=== PATIENT | female | born 1935 | race Caucasian/White ===

== ENCOUNTER 2018-07-27 09:20 | Inpatient (IN) | payer MEDICARE ==
[2018-07-27] MEDS ORDERED: methylPREDNISolone Sod Succ/PF 125 MG/2 ML VIAL ONE (09:36)
[2018-07-27 09:46] LABS: #Basophils 0.1 thou/uL (0.0-0.2); #Lymphocytes 1.3 thou/uL (1.20-3.40); #Neutrophils 5.8 thou/uL (1.40-6.50); %Basophils 0.9 % (0.0-1.0); %Eosinophils 0.1 % (0.0-10.0); %Lymphocytes 16.4 % (21.0-51.0); %Monocytes 11.6 % (0.0-10.0); Hemoglobin 14.9 g/dL (12.0-16.0); Mean Corpuscular HGB CONC 33.9 g/dL (32.0-36.0); Mean Corpuscular Hemoglobin 28.9 pg (27.0-31.0); Mean Corpuscular Volume 85.3 fL (78.0-98.0); Mean Platelet Volume 6.8 fL (7.4-10.4); Platelet Count 264 thou/uL (130-400); RBC Distribution Width 12.7 % (11.5-14.5); Red Blood Cell (RBC) Count 5.14 mill/uL (4.20-5.40); White Blood Cell (WBC) Count 8.2 thou/uL (4.8-10.8)
[2018-07-27] MEDS ORDERED: Nitroglycerin 2% Ointment 1 INCH/1 GM Packet ONE (09:50)
[2018-07-27 10:02] LABS: ALT (SGPT) 13 U/L (8-55); AST (SGOT) 24 U/L (5-34); Albumin 3.9 g/dL (3.4-4.8); Alkaline Phosphatase 76 U/L (40-150); Anion Gap 13 mmol/L (10-20); BUN (Urea Nitrogen) 23 mg/dL (9.8-20.1); Bilirubin, Total 0.3 mg/dL (0.2-1.2); CK (CPK) 251 U/L (29-168); Calc. Creatinine Clearance 0 mL/min (70-130); Calcium 9.3 mg/dL (7.8-10.44); Carbon Dioxide 34 mmol/L (23-31); Chloride 95 mmol/L (98-107); Estimated GFR-MDRD 40; Globulin 3.5 g/dL (2.4-3.5); Glucose 105 mg/dL (83-110); Potassium 3.8 mmol/L (3.5-5.1); Protein, Total 7.4 g/dL (6.0-8.3); Sodium 138 mmol/L (136-145)
[2018-07-27 10:04] LABS: CKMB 4.1 ng/mL (0-6.6); Troponin I Less than 0.010 ng/mL (< 0.028)
[2018-07-27] MEDS ORDERED: Ondansetron ODT 4 MG TAB SL PRN (11:55)
[2018-07-27] MEDS ORDERED: Ondansetron PF 4 MG/2 ML Vial IVP PRN (11:55)
[2018-07-27] MEDS ORDERED: Acetaminophen 325 MG TAB PO PRN (11:55)
[2018-07-27] MEDS: methylPREDNISolone Sod Succ/PF 125 MG/2 ML VIAL IVP SCH ×2 (13:51→21:19)
[2018-07-27] MEDS ORDERED: Benzonatate 100 MG CAP PO PRN (17:34)
[2018-07-27] MEDS ORDERED: Promethazine DM 6.25-15mg/5ml 120 ML BOT PO PRN (17:34)
[2018-07-27] MEDS: Mometasone/Formoterol 60 PUFF AER INH SCH (18:28)
[2018-07-27] MEDS: Ipratropium Bromide 2.5 ml Neb NEB SCH (21:23)
--- NOTE | 2018-07-27 22:04 | RAD ---
PORTABLE CHEST: 07/27/18 Comparison is made with a 09/25/14 study. Portable study at 0929 shows a normal heart size and no congestive change. There are no lobar infiltr ates or effusions. Calcification is seen in the aortic arch. A little bit of basilar scarring is seen medially on the right IMPRESSION: No acute finding. POS: HOME
--- NOTE | 2018-07-28 00:10 | HP ---
DATE OF ADMISSION: 07/27/2018 CHIEF COMPLAINT: Dyspnea and hypoxia. HISTORY OF PRESENT ILLNESS: An 83-year-old female with underlying chronic obstructive pulmonary disease, presented to the [facility] Emergency Department with progressive worsening of cough, wheezing, and dyspnea over the last 5 to 6 days. She was notably hypoxic at 84% and thus was treated with IV Solu-Medrol, DuoNeb, and supplemental oxygen. Patient also received Levaquin. She was seen in the outpatient setting two days ago by PA, Krissy Mckeon, and started on treatment for bronchitis with Cipro 500 mg p.o. b.i.d. and prednisone taper; however, her respiratory status declined prompting her arrival to the emergency department. The patient is not on supplemental oxygen for her COPD. Her most recent COPD exacerbation requiring hospitalization was approximately 4 years ago and at that time, she stopped smoking. She has previously been treated with controller medication such as Breo; however, states that she does not notice much benefit from this medicine. Patient's respiratory status has improved since receiving treatment in the emergency department setting, however, she still remains hypoxic with dyspnea upon exertion and this requires further treatment and admission. PAST MEDICAL HISTORY: Include hypertension, atrial fibrillation, COPD. PAST SURGICAL HISTORY: Includes appendectomy and tubal ligation. ALLERGIES: LISINOPRIL causes cough. FAMILY HISTORY: Noncontributory. CURRENT MEDICATIONS: Include Ziac 5/6.25 mg p.o. daily, hydrochlorothiazide 25 mg p.o. daily. REVIEW OF SYSTEMS: General: Patient denies fever or chills. Ears, nose, and throat: Denies sore throat, nasal drainage or congestion. Cardiovascular: Denies chest pain. Respiratory: Complains of cough and dyspnea. Gastrointestinal: Denies abdominal pain, nausea, vomiting, diarrhea, or constipation. Genitourinary: Denies dysuria. Musculoskeletal: Denies joint swelling or pain. Derm: Denies rash. Neurologic: Denies headache. LABORATORY DATA: CBC showed a white blood cell count of 8.2, H&H is 14.9 and 43.8. CMP shows normal sodium, potassium, and calcium. Glucose 105, BUN 23. Chest x-ray official read is pending. PHYSICAL EXAMINATION: VITAL SIGNS: Temperature is 97.8, pulse is 95, respiratory rate is 20, oxygen is 94% on 2 liters, blood pressure is 126/60. GENERAL: Patient is alert and oriented, in no acute distress. HEAD, EYES, EARS, NOSE, AND THROAT: Normocephalic, atraumatic. Extraocular muscles are intact. Moist mucous membranes, some nasal congestion. NECK: Supple, no lymphadenopathy, no meningeal signs. CARDIOVASCULAR: Regular rate and rhythm. Normal S1, S2. No murmurs, rubs, or gallops. RESPIRATORY: Scattered wheezes with decreased breath sounds, noted tightness. No rhonchi. ABDOMEN: Soft, nontender to palpation. EXTREMITIES: No clubbing, cyanosis, or edema. NEUROLOGIC: Cranial nerves II through XII are grossly intact. ASSESSMENT AND PLAN: 1. Chronic obstructive pulmonary disease exacerbation. We will resume methylprednisolone 60 mg q.8 hours IV. We will start the patient on Dulera as a controller medication for chronic obstructive pulmonary disease. We will continue supplemental oxygen and wean as appropriate. Patient received DuoNeb in the emergency department. She states albuterol makes her jittery and causes palpitations, thus we will proceed with Atrovent nebs q.8 hours. Patient has taken Cipro p.o. as an outpatient and received Levaquin in the emergency department. We will hold antibiotics for now and follow up the official reading of chest x-ray. 2. Hypoxia. Patient is not on home oxygen. She is currently on 2 liters supplemental O2. We will wean as appropriate to keep O2 sats greater than 92%. 3. Hypertension. Patient is hemodynamically stable with blood pressure at goal , we will resume her home blood pressure medications. 4. History of atrial fibrillation. Patient is currently rate controlled. 5. Prophylaxis. We will provide famotidine for gastrointestinal prophylaxis and Lovenox for deep venous thrombosis prophylaxis. CODE STATUS: Patient is a DNR. She will sign the forms to confirm this per her wishes. FIFI
[2018-07-28] MEDS: Mometasone/Formoterol 60 PUFF AER INH SCH ×2 (06:22→18:49)
[2018-07-28] MEDS: Ipratropium Bromide 2.5 ml Neb NEB SCH ×3 (06:25→21:56)
[2018-07-28] MEDS: methylPREDNISolone Sod Succ/PF 125 MG/2 ML VIAL IVP SCH (06:27)
[2018-07-28] MEDS: Famotidine 20 MG TAB PO SCH (09:04)
[2018-07-28] MEDS: Hydrochlorothiazide 25 MG TAB PO SCH (09:05)
[2018-07-28] MEDS: Enoxaparin Sodium 30 MG/0.3 ML SYRINGE SC SCH (09:08)
[2018-07-28] MEDS: Bisoprolol Fumarate/HCTZ 5 mg/6.25 mg Tablet PO SCH (09:09)
[2018-07-28] MEDS ORDERED: Docusate 100 MG CAP PO PRN (20:03)
[2018-07-29] MEDS: Mometasone/Formoterol 60 PUFF AER INH SCH ×2 (05:24→19:09)
[2018-07-29] MEDS: Ipratropium Bromide 2.5 ml Neb NEB SCH ×3 (05:32→21:56)
[2018-07-29] MEDS: Hydrochlorothiazide 25 MG TAB PO SCH (08:55)
[2018-07-29] MEDS: Bisoprolol Fumarate/HCTZ 5 mg/6.25 mg Tablet PO SCH (08:56)
[2018-07-29] MEDS: Famotidine 20 MG TAB PO SCH (08:56)
[2018-07-29] MEDS: Enoxaparin Sodium 30 MG/0.3 ML SYRINGE SC SCH (08:57)
[2018-07-30] MEDS: Mometasone/Formoterol 60 PUFF AER INH SCH ×2 (06:08→18:39)
[2018-07-30] MEDS: Ipratropium Bromide 2.5 ml Neb NEB SCH ×3 (06:09→23:05)
[2018-07-30] MEDS: Hydrochlorothiazide 25 MG TAB PO SCH (08:23)
[2018-07-30] MEDS: Bisoprolol Fumarate/HCTZ 5 mg/6.25 mg Tablet PO SCH (08:23)
[2018-07-30] MEDS: Famotidine 20 MG TAB PO SCH (08:23)
[2018-07-30] MEDS: Enoxaparin Sodium 30 MG/0.3 ML SYRINGE SC SCH (08:24)
--- NOTE | 2018-07-30 13:32 | PRG ---
DATE OF SERVICE: 07/30/2018 DATE OF ADMISSION: 07/30/2018 PRIMARY CARE PHYSICIAN: Arsenio Sun MD SUBJECTIVE: The patient is slowly improving. She did not tolerate FiO2 of 24%. She felt that her c hest became tight, they had to increase it back to FiO2 of 28%. Still requiring scheduled ipratropiu m nebulization. She cannot tolerate albuterol due to history of palpitations secondary to atrial fib rillation 4 years ago requiring admission. SUBJECTIVE: VITAL SIGNS: Blood pressure of 178/76, temperature of 97.7, pulse of 82, respiratory rate of 20, O2 saturation 94% at 2 liters. GENERAL: Alert, oriented, not in respiratory distress, morbidly obese. NECK: Supple. Negative for lymphadenopathy. CHEST AND LUNGS: Symmetrical expansion, positive for slight use of accessory muscles. Positive for tight breath sounds and mild expiratory wheezing on the left lung flores. Good breath sounds on righ t lung flores. HEART: Regular rate and rhythm. Negative for murmur, rubs or gallops. ABDOMEN: Distended, soft, nontender. EXTREMITIES: No clubbing, no cyanosis. PSYCHIATRIC: Appropriate affect and demeanor. ASSESSMENT: 1. Chronic obstructive pulmonary disease exacerbation. We will deescalate Solu-Medrol to 60 mg q.12 hours. Continue ipratropium nebulization every 8 hours. Continue mometasone, formoterol 2 puffs in halation b.i.d. 2. Hypertension, elevated this morning. We will need to monitor. May need to optimize the dosage o r add calcium channel yolanda. 3. History of atrial fibrillation. Rate controlled at this time. Continue to monitor.
[2018-07-30] MEDS: methylPREDNISolone Sod Succ/PF 125 MG/2 ML VIAL IVP SCH (19:42)
[2018-07-31] MEDS: Ipratropium Bromide 2.5 ml Neb NEB SCH ×3 (06:14→22:20)
[2018-07-31] MEDS: Mometasone/Formoterol 60 PUFF AER INH SCH ×2 (06:16→19:56)
[2018-07-31] MEDS: Hydrochlorothiazide 25 MG TAB PO SCH (08:43)
[2018-07-31] MEDS: Bisoprolol Fumarate/HCTZ 5 mg/6.25 mg Tablet PO SCH (08:43)
[2018-07-31] MEDS: Famotidine 20 MG TAB PO SCH (08:44)
[2018-07-31] MEDS: Enoxaparin Sodium 30 MG/0.3 ML SYRINGE SC SCH (08:44)
[2018-07-31] MEDS: methylPREDNISolone Sod Succ/PF 125 MG/2 ML VIAL IVP SCH ×2 (08:45→19:58)
[2018-07-31] MEDS ORDERED: Mag-Al Plus 1200 MG/1200 MG/120 MG/30 ML UDCUP PO PRN (10:14)
--- NOTE | 2018-07-31 13:43 | PRG ---
DATE OF SERVICE: 07/31/2018 PRIMARY CARE PHYSICIAN: Dr. Sun. SUBJECTIVE: The patient is improving with coughing; however, she developed epigastric pain with ches t tightness last night. She had an EKG showing premature atrial contraction. She has some improveme nt with pain after Zofran. Today, she reports that it is less annoying. She refused further workup regarding heart. She knew she needed cardiac evaluation, but would rather avoid any further testing or invasive procedure and states she would like to manage her breathing first. Her blood pressure martinez s been elevated for the past 2 days, not controlled with her current medications. OBJECTIVE: VITAL SIGNS: Blood pressure of 176/81, temperature of 98.1, pulse of 70, respiratory rate of 24, O2 sat 91% at FIO2 of 28%. GENERAL: The patient is alert, oriented, not in distress, morbidly obese. NECK: Supple. Negative for lymphadenopathy. CHEST AND LUNGS: Symmetrical expansion, positive for expiratory wheezing on the left lung flores. G ood breath sounds in right lung flores. HEART: Regular rate and rhythm. Negative for murmur, rubs or gallops. ABDOMEN: Distended, soft, nontender, normoactive bowel sounds. EXTREMITIES: No clubbing, no cyanosis. PSYCHIATRIC: Appropriate affect and demeanor. ASSESSMENT: 1. Chronic obstructive pulmonary disease, responding well with ipratropium nebulization and Solu-Med rol IV. We will continue weaning her from oxygen. 2. Hypertension, uncontrolled. 3. History of atrial fibrillation, rate controlled, had premature atrial contractions last night, cu rrently asymptomatic. We will initiate Cardizem 120 mg daily. We will monitor her blood pressure in respond to medication. We might need to increase that to 240 mg tomorrow if her blood pressure will not respond. She refused further cardiac evaluation. Transfer of care to Dr. Sun tomorrow morning.
[2018-08-01] MEDS: Ipratropium Bromide 2.5 ml Neb NEB SCH ×3 (06:07→21:30)
[2018-08-01] MEDS: Mometasone/Formoterol 60 PUFF AER INH SCH ×2 (06:08→17:02)
[2018-08-01] MEDS ORDERED: Amlodipine 5 MG TAB PO SCH (09:00)
[2018-08-01] MEDS: Enoxaparin Sodium 30 MG/0.3 ML SYRINGE SC SCH (09:10)
[2018-08-01] MEDS: methylPREDNISolone Sod Succ/PF 125 MG/2 ML VIAL IVP SCH (09:11)
[2018-08-01] MEDS: predniSONE 20 MG TAB PO SCH (09:14)
[2018-08-01] MEDS: Famotidine 20 MG TAB PO SCH (09:15)
[2018-08-01] MEDS: guaiFENesin ER 600 MG TAB PO SCH ×2 (09:16→21:26)
[2018-08-01] MEDS: Hydrochlorothiazide 25 MG TAB PO SCH (09:16)
[2018-08-01] MEDS: Bisoprolol Fumarate/HCTZ 5 mg/6.25 mg Tablet PO SCH (09:17)
[2018-08-01 16:35] VITALS: BMI 31.4
[2018-08-01] MEDS ORDERED: cloNIDine 0.1 MG TAB PO PRN ×2 (21:10→21:30)
[2018-08-01] MEDS ORDERED: cloNIDine 0.1 MG TAB PO SCH (21:15)
[2018-08-02] MEDS: Ipratropium Bromide 2.5 ml Neb NEB SCH ×2 (06:21→13:51)
[2018-08-02] MEDS: Amlodipine 10 MG TAB PO SCH (06:27)
[2018-08-02] MEDS: Hydrochlorothiazide 25 MG TAB PO SCH (06:27)
[2018-08-02] MEDS: Mometasone/Formoterol 60 PUFF AER INH SCH ×2 (06:28→18:28)
[2018-08-02] MEDS: Enoxaparin Sodium 30 MG/0.3 ML SYRINGE SC SCH (08:36)
[2018-08-02] MEDS: Famotidine 20 MG TAB PO SCH (08:37)
[2018-08-02] MEDS: predniSONE 20 MG TAB PO SCH (08:38)
[2018-08-02] MEDS: HCTZ PO SCH (08:42)
[2018-08-02] MEDS: BISOPROLOL PO SCH (08:42)
[2018-08-03] MEDS: Ipratropium Bromide 2.5 ml Neb NEB SCH ×2 (01:13→05:25)
[2018-08-03] MEDS: Mometasone/Formoterol 60 PUFF AER INH SCH (05:34)
[2018-08-03 06:45] VITALS: BP 172/74; TEMP 98.6
[2018-08-03] MEDS: Hydrochlorothiazide 25 MG TAB PO SCH (08:45)
[2018-08-03] MEDS: predniSONE 20 MG TAB PO SCH (08:45)
[2018-08-03] MEDS: Amlodipine 10 MG TAB PO SCH (08:46)
[2018-08-03] MEDS: Famotidine 20 MG TAB PO SCH (08:46)
[2018-08-03] MEDS: HCTZ PO SCH (08:47)
[2018-08-03] MEDS: BISOPROLOL PO SCH (08:47)
[2018-08-03] MEDS: Enoxaparin Sodium 30 MG/0.3 ML SYRINGE SC SCH (08:49)
--- NOTE | 2018-08-03 23:19 | DIS ---
DATE OF ADMISSION: 07/27/2018 DATE OF DISCHARGE: 08/03/2018 ADMISSION DIAGNOSES: Chronic obstructive pulmonary disease exacerbation with hypoxia. SECONDARY DIAGNOSES: Hypertension, history of atrial fibrillation. PROCEDURES: On 07/27/2018, chest x-ray showed no acute findings. HOSPITAL COURSE: An 83-year-old female who presented to [facility] Emergency Department with worsening upper respiratory symptoms over 5 and 6 days' time, subsequently noted to be hypoxic and thus was started on supplemental oxygen, IV Solu-Medrol, DuoNebs, and received Levaquin as well. She was admitted to the floor with continued therapy other than the antibiotics as her chest x-ray showed no infiltrates and her white blood cell count was normal; in addition to this, she had been afebrile with no chills or diaphoresis. The patient has had a prior hospitalization for COPD exacerbation approximately 4 years ago and she had stopped smoking at that time. She was not on any controller medication prior to her arrival here. She also does not have a rescue inhaler at home. We were able to effectively wean the patient from supplemental oxygen during her stay. Her blood pressure was difficult to control during her stay and on-call physician had restarted the patient on Cardizem secondary to the patient having some complaints of chest discomfort with a subsequent EKG revealing intermittent PACs. The patient states that she was on Cardizem in the past and cannot afford this medication, thus she was transitioned to amlodipine. The patient developed swelling of the lower extremities which was felt to be attributed to possibly the amlodipine and/or the steroid treatments and thus she will be discharged home on losartan for her blood pressure in addition to her usual medications instead of the Amlodipine. As far as the chest pain, the patient refused further workup other than the EKG and cardiac enzymes which were notably negative. She did receive a GI cocktail which she reports relieved her symptoms quickly. Prior to discharge, the patient was able to effectively produce more mucus and aeration of her lungs improved; as noted, she was able to effectively wean off of supplemental oxygen. Due to her rhonchi and mucus production, she will be discharged home on a course of azithromycin and to complete a course of p.o. prednisone. The patient feels improved overall since time of her arrival and is amenable to discharge to her home setting at this time to complete the aforementioned medications in addition to starting a daily controller medication of Symbicort with the p.r.n. albuterol inhaler. DISPOSITION: The patient will be discharge home, may follow up with myself in the clinic next week. DISCHARGE MEDICATIONS: New medications include losartan 50 mg p.o. daily, prednisone 20 mg p.o. daily x5 days, Symbicort 2 puffs inhaled b.i.d., albuterol rescue inhaler 1-2 puffs q.4-6 hours p.r.n., and Z-JACY. She will resume her usual medications which include Ziac 5-6.25 mg p.o. daily and hydrochlorothiazide 25 mg p.o. daily. MTDD
[2018-08-04] MEDS ORDERED: predniSONE 20 MG TAB PO SCH (09:00)
== END 2018-08-03 11:10 | disposition home or self-care (01) | DRG 192 ==
LOC: BURERS 09:20 → BURMED 10:35
PROVIDERS: ADMIT Family Medicine; ATTEND Family Medicine
DX: J44.1 Chronic obstructive pulmonary disease with (acute) exacerbation (principal); R09.02 Hypoxemia; I10 Essential (primary) hypertension; I48.91 Unspecified atrial fibrillation; K21.9 Gastro-esophageal reflux disease without esophagitis; Z66 Do not resuscitate; Z87.01 Personal history of pneumonia (recurrent); E78.5 Hyperlipidemia, unspecified; F32.9 Major depressive disorder, single episode, unspecified; Z87.891 Personal history of nicotine dependence
CPT/HCPCS: 36415; 71045; 80053; 82550; 82553; 83880; 84484; 85025; 87040; 93005; 94640; 94664; 94760; 96365; 96375; G8978-GP-CK; G8979-GP-CI; J1650; J1956; J2920; J2930; J7506; J7620; J7644; Q0162

== ENCOUNTER 2019-07-15 11:01 | Emergency (ER) | payer MEDICARE ==
[2019-07-15 11:31] LABS: Hemoglobin 14.2 g/dL (12.0-16.0); Mean Corpuscular HGB CONC 31.5 g/dL (32.0-36.0); Mean Corpuscular Hemoglobin 27.8 pg (27.0-31.0); Mean Corpuscular Volume 88.2 fL (78.0-98.0); Mean Platelet Volume 6.4 fL (7.4-10.4); Platelet Count 275 thou/uL (130-400); RBC Distribution Width 12.7 % (11.5-14.5); Red Blood Cell (RBC) Count 5.11 mill/uL (4.20-5.40); White Blood Cell (WBC) Count 28.3 thou/uL (4.8-10.8)
[2019-07-15 11:45] LABS: Band 28 % (5-11); Lymphocytes 5 % (21-51); MDiff Complete? YES; Monocytes 8 % (0-10); Neutrophil 59 % (42-75); Reflex for Review?? NO; Vacuoles MODERATE
[2019-07-15] MEDS ORDERED: Piperacillin/Tazobactam 4.5 GM VIAL ONE (11:48)
[2019-07-15] MEDS ORDERED: Acetaminophen 500 MG TAB ONE (11:48)
[2019-07-15 11:50] LABS: ALT (SGPT) 8 U/L (8-55); AST (SGOT) 15 U/L (5-34); Albumin 3.6 g/dL (3.4-4.8); Alkaline Phosphatase 84 U/L (40-110); Anion Gap 17 mmol/L (10-20); BUN (Urea Nitrogen) 25 mg/dL (9.8-20.1); Bilirubin, Total 0.9 mg/dL (0.2-1.2); Calc. Creatinine Clearance 0 mL/min (70-130); Calcium 9.4 mg/dL (7.8-10.44); Carbon Dioxide 30 mmol/L (23-31); Chloride 93 mmol/L (98-107); Estimated GFR-MDRD 27; Globulin 3.7 g/dL (2.4-3.5); Glucose 117 mg/dL (83-110); Lipase 12 U/L (8-78); Potassium 3.9 mmol/L (3.5-5.1); Protein, Total 7.3 g/dL (6.0-8.3); Sodium 136 mmol/L (136-145)
[2019-07-15] MEDS ORDERED: Sodium Chloride 0.9% 100 ML ONE (11:50)
[2019-07-15 12:00] LABS: Bilirubin Moderate (Negative); Blood, Urine Trace (Negative); Clarity Cloudy (Clear); Glucose, Urine (Dipstick) Negative (Negative); Leukocyte Negative (Negative); Nitrite Positive (Negative); Protein, Urine (Dipstick) 100 mg/dL (Neg-Trace)
[2019-07-15 12:04] LABS: Bacteria/HPF 4+ HPF (None Seen); RBC/HPF 0-3 HPF (0-3)
[2019-07-15 12:05] LABS: Mucous/LPF 4+ LPF (<2+)
[2019-07-15 12:06] LABS: CKMB 1.1 ng/mL (0-6.6)
[2019-07-15] MEDS ORDERED: Aspirin Chewable 81 MG TAB ONE (12:35)
--- NOTE | 2019-07-15 16:41 | RAD ---
PORTABLE CHEST: 07/15/19 There is a patchy opacity in the right costophrenic angle on this film done at 1121. It was not prese nt on the 07/27/18 study. Pneumonia is suspected. The lungs are otherwise clear but hyperexpanded. The heart size is normal. Calcification is seen in the aortic arch. IMPRESSION: Right basilar infiltrate. POS: HOME
== END 2019-07-15 12:50 | disposition short-term general hospital (02) ==
LOC: BURERS 11:01
DX: A41.9 Sepsis, unspecified organism (principal); J18.1 Lobar pneumonia, unspecified organism; R79.89 Other specified abnormal findings of blood chemistry; I10 Essential (primary) hypertension; J44.9 Chronic obstructive pulmonary disease, unspecified; Z87.891 Personal history of nicotine dependence; Z79.899 Other long term (current) drug therapy
CPT/HCPCS: 71045; 80053; 81003; 81015; 82553; 83605; 83690; 83880; 84484; 85025; 87040; 87077; 87086; 87186; 93005; 96361; 96365; A4353; J1956; J2543; J3490